=== PATIENT | male | born 1955 | race Caucasian/White ===

== ENCOUNTER → 2017-04-19 | Outpatient (CLI) | payer OTHER ==
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
== END | disposition home or self-care (01) ==
LOC: DXRADRC 11:14
PROVIDERS: ATTEND Physician Assistant
DX: M16.12 Unilateral primary osteoarthritis, left hip (principal); K80.20 Calculus of gallbladder without cholecystitis without obstruction; M46.86 Other specified inflammatory spondylopathies, lumbar region; R07.81 Pleurodynia; V29.9XXD Motorcycle rider (driver) (passenger) injured in unspecified traffic accident, subsequent encounter
CPT/HCPCS: 71101; 72100

== ENCOUNTER 2021-02-19 16:00 | Observation (INO) | payer MEDICARE, OTHER ==
[~2021-02-19] VITALS: Ht 190.5 cm; Wt 102.2 kg
[2021-02-19 16:14] VITALS: BP 210/108
[2021-02-19 16:15] VITALS: BP 216/116
[2021-02-19] MEDS ORDERED: NIFEdipine 10 MG CAPSULE PO SCH (16:30)
[2021-02-19] MEDS ORDERED: NIFEdipine 10 MG CAPSULE ONE (16:32)
[2021-02-19 16:34] LABS: BASO # 0.2 x10^3/uL (0.0-0.2); BASO % 1 % (0-3); EOS # 0.2 x10^3/uL (0.0-0.7); EOS % 2 % (0-3); HEMATOCRIT 46.9 % (39.0-53.0); HEMOGLOBIN 15.7 g/dL (13.0-17.5); LYMPH # 2.6 x10^3/uL (1.0-4.8); LYMPH % 24 % (24-48); MEAN CORPUSCULAR HEMOGLOBIN 31 pg (25-35); MEAN CORPUSCULAR HGB CONC 34 g/dL (31-37); MEAN CORPUSCULAR VOLUME 92 fL (79-100); MONO # 0.8 x10^3/uL (0.0-1.1); MONO % 8 % (0-9); NEUT # 7.1 x10^3uL (1.8-7.7); NEUT % 65 % (31-73); PLATELET COUNT 381 x10^3/uL (140-400); RED BLOOD COUNT 5.08 x10^6/uL (4.30-5.70); RED CELL DISTRIBUTION WIDTH 14.4 % (11.5-14.5); WHITE BLOOD COUNT 10.9 x10^3/uL (4.0-11.0)
[2021-02-19 16:43] LABS: CREATININE 1.2 mg/dL (0.7-1.3); POTASSIUM 3.8 mmol/L (3.5-5.1)
[2021-02-19] MEDS ORDERED: ASCO100T4 PO (16:47)
[2021-02-19] MEDS ORDERED: MULT-245 PO (16:47)
[2021-02-19 16:49] LABS: ALBUMIN 3.9 g/dL (3.4-5.0); C REACTIVE PROTEIN 5.2 mg/L (0-3.3); TOTAL BILIRUBIN 0.3 mg/dL (0.2-1.0); TOTAL PROTEIN 7.7 g/dL (6.4-8.2)
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
--- NOTE | 2021-02-19 17:02 | RAD ---
PA and lateral chest. HISTORY: Hypertension, chest pain PA and lateral views were taken of the chest. Lungs are free of infiltrates. Heart is normal in size. There is no pleural effusion. Aorta is mildly tortuous. IMPRESSION: 1. No acute chest disease. Electronically signed by: Deepak Everett MD (02/19/2021 5:00 PM) [id number]
--- NOTE | 2021-02-19 17:05 | NUR ---
NURSING NOTE CRITICAL LAB TROP 0.[address] NEWBY ORDER FOR METOPROLOL SUC 25MG NOW. MARY ARIAS.
--- NOTE | 2021-02-19 17:12 | EKG ---
[address] [address] Test Date: 2021-02-19 Test Time: 16:39:52 Pat Name: HUGO SIMMONS Department: Room: 123 A Gender: M Grill Chef: : [id number] Requested By: JEANNIE NEWBY Order Number: [id number] Reading MD: Measurements Intervals [place] Rate: 64 P: 21 AK: 186 QRS: -48 QRSD: 136 T: -8 QT: 460 QTc: 474 Interpretive Statements SINUS RHYTHM ABNORMAL LEFT AXIS DEVIATION LEFT ANTERIOR FASCICULAR BLOCK NON SPECIFIC INTRAVENTRICULAR BLOCK RVH WITH REPOLARIZATION ABNORMALITY ABNORMAL ECG RI6.01 No previous ECG available for comparison
[2021-02-19] MEDS ORDERED: METOPROLOL SUCC 24HR ER 25 MG TAB.ER.24H. PO ONE (17:15)
[2021-02-19 17:53] VITALS: BP 154/70
--- NOTE | 2021-02-19 18:07 | NUR ---
NURSING NOTE PT BLOOD PRESSURE NOW 155/74 PULSE 72 OF NOW, NO ORDER FOR CONSULT CARDIOLOGY NEEDED PER DR NEWBY. PT DENIES CHEST PAIN AT THIS TIME. CURRENTLY RESTING IN THE BED WITH SIG OTHER AT BEDSIDE. MARY ARIAS.
[2021-02-19 18:14] LABS: COLOR,URINE YELLOW
[2021-02-19 18:15] LABS: BILIRUBIN,URINE NEG (NEG); CLARITY,URINE CLEAR; GLUCOSE,URINE NEG (NEG); NITRITE,URINE NEG (NEG); UROBILINOGEN,URINE 0.2 mg/dL (0.2 mg/dL)
[2021-02-19 18:16] LABS: BACTERIA,URINE 0 /HPF (0-FEW); RBC,URINE 0 /HPF (0-2); SQUAMOUS EPITHELIAL CELL,UR OCC /LPF; WBC,URINE 0 /HPF (0-4)
[2021-02-19] MEDS ORDERED: ZOLPIDEM 5 MG TABLET. PO PRN (19:00)
[2021-02-19] MEDS ORDERED: ACETAMINOPHEN 325 MG TABLET PO PRN (19:00)
--- NOTE | 2021-02-19 19:03 | RAD ---
Exam: CT head INDICATION: Syncope TECHNIQUE: Sequential axial images through the head were obtained without the administration of IV co ntrast. Exposure: One or more of the following in the visualized dose reduction techniques were utilized for this examination: 1. Automated exposure control 2. Adjustment of the MA and/or KV according to patient size 3. Use of iterative of reconstructive technique Comparisons: None FINDINGS: No focal parenchymal lesion or hemorrhage is identified. There is no midline shift or sulcal effaceme nt. Mild patchy hypodensity in the periventricular white matter. No acute vascular territory infarction i s identified. Lovett-white distinction is preserved. The ventricular system is within normal limits without compression hydrocephalus. The basal cisterns are well maintained. The visualized portions of the paranasal sinuses and mastoid air cells are well-pneumatized. No acute fractures. IMPRESSION: Mild small vessel ischemic change, technically age indeterminate without recent prior imaging. Electronically signed by: Steven Baldwin MD (02/19/2021 7:01 PM) [facility]
[2021-02-19 19:31] VITALS: BP 155/80
[2021-02-19] MEDS ORDERED: ENOXAPARIN 40 MG/0.4 ML SYRINGE. SQ SCH (21:00)
[2021-02-20 00:45] VITALS: BP 165/90
[2021-02-20] MEDS: NIFEdipine 10 MG CAPSULE PO SCH ×4 (00:53→16:11)
[2021-02-20 05:48] VITALS: BP 157/90
[2021-02-20] MEDS ORDERED: ASPIRIN CHEWABLE 81 MG TABLET. PO SCH (08:00)
[2021-02-20 09:28] VITALS: BP 169/83
[2021-02-20] MEDS ORDERED: LISINOPRIL 10 MG TABLET PO SCH (10:30)
[2021-02-20 10:43] VITALS: BP 184/90
[2021-02-20] MEDS ORDERED: hydroCHLOROthiazide 25 MG TABLET. PO ONE (10:45)
[2021-02-20 14:11] VITALS: BP 168/79
[2021-02-20] MEDS ORDERED: HYDR-2145 PO (15:30)
[2021-02-20] MEDS ORDERED: NIFE10CA2 PO (15:30)
[2021-02-20] MEDS ORDERED: LISI10TA16 PO (15:30)
[2021-02-20] MEDS ORDERED: METO-239 PO (15:30)
[2021-02-20] MEDS ORDERED: ASPI-630 PO (15:30)
[2021-02-20 16:11] VITALS: BP 168/79
--- NOTE | 2021-02-20 16:34 | NUR ---
PATIENT IS DISCHARGED HOME, DISCHARGE INSTRUCTION REVIEWED, PATIENT VERBALIZED UNDERSTANDING. PATIENT LEFT ROOM VIA W/C ACCOMP BY THIS RN. PATIENT TAKEN HOME BY VIA PERSONAL VEHICLE.
[2021-02-21] MEDS ORDERED: METOPROLOL SUCC 24HR ER 25 MG TAB.ER.24H. PO SCH (09:00)
[2021-02-21] MEDS ORDERED: hydroCHLOROthiazide 25 MG TABLET. PO SCH (09:00)
== END 2021-02-20 16:35 | disposition home or self-care (01) ==
LOC: 1 SOUTH 16:00 → INTOOBSV 16:00
PROVIDERS: ADMIT Family Medicine; ATTEND Family Medicine
DX: I16.0 Hypertensive urgency (principal); R07.89 Other chest pain; R55 Syncope and collapse; Z91.81 History of falling
CPT/HCPCS: 36415; 70450; 71046; 80053; 80061; 81001; 82550; 83735; 84443; 84484; 85025; 85379; 86140; 93005; 96372; G0378; G0379; J1650